=== PATIENT | male | born 1960 | race Caucasian/White ===

== ENCOUNTER 2022-03-29 00:32 | Emergency (ER) | payer OTHER ==
[2022-03-29 00:49] VITALS: PULSE 60; RESP 16
[2022-03-29] MEDS ORDERED: ORPHENADRINE 30 MG/ML 2 ML VIAL IM STA (01:32)
[2022-03-29] MEDS ORDERED: ONDANSETRON ODT 4 MG TAB PO STA (01:32)
[2022-03-29] MEDS ORDERED: HYDROmorphone 1 MG/ML 1 ML SYRINGE IM STA (01:32)
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
[2022-03-29 04:41] VITALS: BP 142/76; TEMP 98
== END 2022-03-29 04:35 | disposition home or self-care (01) ==
LOC: EC 00:32
DX: S43.101A Unspecified dislocation of right acromioclavicular joint, initial encounter (principal); I10 Essential (primary) hypertension; I48.91 Unspecified atrial fibrillation; Z79.899 Other long term (current) drug therapy; V49.50XA Passenger injured in collision with unspecified motor vehicles in traffic accident, initial encounter
CPT/HCPCS: 73030; 99284; 96372 ×2; J2360; J1170

== ENCOUNTER → 2022-04-07 | Outpatient (CLI) | payer OTHER ==
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
== END ==
LOC: RADMRIMAIN 07:15
PROVIDERS: ATTEND Orthopaedic Surgery
DX: M25.511 Pain in right shoulder (principal); R60.0 Localized edema